=== PATIENT | male | born 1970 | race Caucasian/White ===

== ENCOUNTER → 2017-06-27 | Outpatient (CLI) | payer BC ==
[~2017-06-27] MED LIST: FLUT1DIS IH; OMEP20TA63 PO
--- NOTE | 2017-06-27 10:24 | RAD ---
Chest, 2 views, 06/27/2017: History: Cough, chest congestion The heart size and pulmonary vascularity are normal. The lungs are clear. There is no evidence of pleural fluid. IMPRESSION: No acute cardiopulmonary abnormality is detected.
== END | disposition home or self-care (01) ==
LOC: PMG 08:47
PROVIDERS: ATTEND Physician Assistant Medical
DX: R09.89 Other specified symptoms and signs involving the circulatory and respiratory systems (principal)
CPT/HCPCS: 71046

== ENCOUNTER → 2020-12-15 | Outpatient (CLI) | payer BC ==
--- NOTE | 2020-12-15 10:48 | RAD ---
5 views of the lumbar spine including flexion and extension views 12/15/2020 10:21 AM Indication : acute right sided low back pain with right sided sciatica / Comparison: MRI of the lumbar spine October 18, 2010 Findings: No evidence of acute fracture or acute alignment abnormality is identified. There is degene rative disc space narrowing at L4-5 and L5-S1. Posterior projecting disc osteophyte complexes are see n which may result in significant neural foraminal narrowing. No evidence of spondylolysis or spondyl olisthesis is seen. No acute soft tissue abnormalities are identified. IMPRESSION: Degenerative changes of the lumbar spine most prominent at L4-S1. Significant neural fora mg narrowing is possible. Consider MRI evaluation as clinically indicated. Electronically signed by: Matthew Appiah MD (12/15/2020 10:46 AM) [id number]
== END ==
LOC: RAD 10:14
PROVIDERS: ATTEND Physician Assistant Medical
DX: M51.37 Other intervertebral disc degeneration, lumbosacral region (principal); M47.817 Spondylosis without myelopathy or radiculopathy, lumbosacral region; M48.07 Spinal stenosis, lumbosacral region; M25.78 Osteophyte, vertebrae
CPT/HCPCS: 72110